=== PATIENT | female | born 1965 | race American Indian/Alaskan Native ===

== ENCOUNTER 2016-11-10 14:23 | Emergency (ER) | payer BC, OTHER ==
[2016-11-10] MEDS ORDERED: NORMODYNE IV ONE ×2 (15:32→16:43)
--- NOTE | 2016-11-10 15:40 | Cat Scan Report ---
FINAL REPORT EXAM: CT HEAD/BRAIN WO CON HISTORY: neuro deficits \T\lt; 6hrs or sx present upon awakening . Vomiting. Hypertension. TECHNIQUE: Standard unenhanced CT of the head at 5.0 millimeter axial increments. PRIORS: CT head 12/09/2015 FINDINGS: There is a new irregular area of low-density in the left basal ganglia extending into the temporal lobe inferiorly and the periventricular white matter superiorly, suggesting edema. Within this area of low-density, there is a smaller area of rounded hyperdensity suggesting hemorrhage. Findings are suspicious for an acute hypertensive hemorrhage in the left basal ganglia with surrounding edema. A diagnostic 2nd possibility is an early hemorrhagic infarct of the left basal ganglia. The 3rd possibility is an underlying mass lesion with hemorrhage and surrounding edema, however, no evidence for mass was seen on the prior exam in this region, making this possibility much less likely. There is mild mass effect on the left lateral ventricle and the left sylvian fissure. The ventricular system is otherwise normal in size and configuration. There is no evidence for parenchymal volume loss. No evidence for acute skull fracture is seen. Visualized paranasal sinuses are clear. No abnormality in the overlying scalp soft tissues is seen. IMPRESSION: Focal area of hemorrhage within the left basal ganglia with surrounding edema causing mass effect on the left lateral ventricle and left sylvian fissure. Most likely diagnostic etiology is a hypertensive hemorrhage of the left basal ganglia. A less likely possibility is hemorrhagic infarct of the left basal ganglia.
[2016-11-10 15:47] LABS: Basophils % (Auto) 0.4 % (0.0-1.8); Eosinophils % (Auto) 0.7 % (0.0-4.3); Hematocrit 38.4 % (30.3-42.9); Hemoglobin 12.4 gm/dl (10.1-14.3); Mean Corpuscular HGB Conc 32 % (30-34); Mean Corpuscular Hemoglobin 26 pg (28-32); Mean Corpuscular Volume 81 fl (79-97); Platelet Count 209 K/mm3 (140-440); Red Blood Count 4.75 M/mm3 (3.65-5.03); Red Cell Distribution Width 14.5 % (13.2-15.2); White Blood Count 8.5 K/mm3 (4.5-11.0)
[2016-11-10 15:50] LABS: INR 0.93 (0.87-1.13)
[2016-11-10] MEDS ORDERED: CARDENE DRIP 40 MG/200 ML 40 MG/200 ML BAG ONE (15:50)
[2016-11-10 15:51] LABS: Partial Thromboplastin Time 25.5 Sec. (24.2-36.6)
[2016-11-10] MEDS ORDERED: CARDENE DRIP 40 MG/200 ML 40 MG/200 ML BAG IV SCH (16:00)
[2016-11-10 16:04] LABS: Anion Gap 19 mmol/L; Blood Urea Nitrogen 15 mg/dL (7-17); Calcium 9.3 mg/dL (8.4-10.2); Carbon Dioxide 25 mmol/L (22-30); Chloride 100.3 mmol/L (98-107); Glucose 89 mg/dL (65-100); Potassium 3.4 mmol/L (3.6-5.0); Sodium 141 mmol/L (137-145)
--- NOTE | 2016-11-10 16:15 | XRay Report ---
FINAL REPORT EXAM: XR CHEST 1V AP HISTORY: neuro deficit. Hypertension TECHNIQUE: AP portable view of the chest PRIORS: CXR 12/09/2015 FINDINGS: Lines, tubes, and devices: N/A Lungs and pleura: Trachea is normal in position. Lungs are clear of infiltrate, pleural effusion, vascular congestion, or pneumothorax. No change. Cardiomediastinal silhouette: Cardiac and mediastinal silhouettes are unremarkable. Other: Bony structures are stable with degenerative changes around both AC joints again noted. IMPRESSION: No acute cardiopulmonary process seen. No change.
--- NOTE | 2016-11-10 17:55 | Emergency Department Report ---
ED Neuro Deficit HPI - General Chief Complaint: Neuro Symptoms/Deficit Stated Complaint: N/V Time Seen by Provider: 11/10/16 15:14 Source: family, EMS Mode of arrival: Stretcher Limitations: No Limitations - History of Present Illness Initial Comments: The patient is accompanied by her daughter who provides the following history. She states that the patient was in her usual state of health at 3 PM when she was last seen well. At her about 3:30 she (the patient's daughter) heard a noise. She came upstairs and discovered the patient on the floor. The patient did not complain of anything specific. Daughter did not note any neurological changes. According to the daughter the reason for presentation was because of acute weakness causing the patient to slide out of a chair. The daughter states that the patient did not suffer a loss of consciousness. She found the patient awake and amply responsive when she responded as above. There was no complaint of headache at any time this day. 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 There was no abnormality seen in the left basal ganglion. The patient is an insulin-dependent diabetic. According to the daughter she is compliant with her blood pressure medicine. -: Sudden Location: speech (the patient was noted to have some slurred speech) History of same: No Place: home Severity: severe Quality: other Improves With: none Worsens With: none On Anticoagulants: No Context: sudden onset (likely) Associated Symptoms: other (unable to provide hx) Treatments Prior to Arrival: none - Related Data Home Medications: Previous Rx's Medication Instructions Recorded Last Taken Type Insulin NPH/Regular [NovoLIN 70/30] 25 unit SUB-Q BIDDIAB #1 units 12/10/15 Rx Labetalol [Normodyne TAB] 200 mg PO BID #60 tablet 12/10/15 12/20/15 Rx Labetalol [Normodyne TAB] 200 mg PO QID #120 tablet 12/10/15 12/20/15 Rx Lisinopril [Zestril TAB] 2.5 mg PO QDAY #30 tab 12/10/15 12/20/15 Rx amLODIPine [Norvasc] 10 mg PO QDAY #30 tablet 12/10/15 12/20/15 Rx Nitrofurantoin [place]/M-Cryst 100 mg PO Q12HR #14 capsule 12/21/15 Unknown Rx [Macrobid CAP] Allergies/Adverse Reactions: Allergies Allergy/AdvReac Type Severity Reaction Status Date / Time No Known Allergies Allergy Verified 12/08/15 22:13 ED Review of Systems ROS: Stated complaint: N/V Other details as noted in HPI Comment: Unobtainable due to pts medical conditions ED Past Medical Hx - Past Medical History Hx Hypertension: Yes Hx Congestive Heart Failure: No Hx Diabetes: Yes Hx Asthma: No - Surgical History Additional Surgical History: lower back - Social History Smoking Status: Never Smoker Substance Use Type: None - Medications Home Medications: Home Medications Medication Instructions Recorded Confirmed Last Taken Type Insulin NPH/Regular [NovoLIN 70/30] 25 unit SUB-Q BIDDIAB #1 units 12/10/1512/20/15 Rx Labetalol [Normodyne TAB] 200 mg PO BID #60 tablet 12/10/15 12/21/15 12/20/15 Rx Labetalol [Normodyne TAB] 200 mg PO QID #120 tablet 12/10/15 12/21/15 12/20/15 Rx Lisinopril [Zestril TAB] 2.5 mg PO QDAY #30 tab 12/10/15 12/21/15 12/20/15 Rx amLODIPine [Norvasc] 10 mg PO QDAY #30 tablet 12/10/15 12/21/15 12/20/15 Rx Nitrofurantoin [place]/M-Cryst 100 mg PO Q12HR #14 capsule 12/21/15 Unknown Rx [Macrobid CAP] ED Neuro Physical Exam - General Limitations: No Limitations General appearance: alert, in no apparent distress Suspected Stroke: Yes - Head Head exam: Present: atraumatic, normocephalic - Eye Eye exam: Present: normal appearance - ENT ENT exam: Present: normal exam, mucous membranes moist - Neck Neck exam: Present: normal inspection - Respiratory Respiratory exam: Present: normal lung sounds bilaterally. Absent: respiratory distress - Cardiovascular Cardiovascular Exam: Present: regular rate, normal rhythm. Absent: systolic murmur, diastolic murmur, rubs, gallop - GI/Abdominal GI/Abdominal exam: Present: soft, normal bowel sounds. Absent: distended, tenderness, guarding, rebound, rigid - Extremities Exam Extremities exam: Present: normal inspection - Back Exam Back exam: Present: normal inspection - Neurological Exam Neurological exam: Present: alert, oriented X3, motor sensory deficit. Absent: CN II-XII intact - NIHSS Assessment Interval: Baseline 1a. Level of Consciousness: alert 1b. LOC Questions: answers 1 question correctly 1c. LOC Commands: performs tasks correctly 2. Best Gaze: normal 3. Visual: no visual loss 4. Facial Palsy: minor paralysis 5b. Motor Arm Right: some gravity effort 5a. Motor Arm Left: no drift 6a. Motor Leg Left: no drift 6b. Motor Leg Right: no gravity effort 7. Limb Ataxia: absent 8. Sensory: normal 9. Best Language: no aphasia 10. Dysarthria: mild/moderate dysarthria 11. Extinction/Inattention: no abnormality Total Score: 8 Stroke Severity: Moderate Stroke - Psychiatric Psychiatric exam: Present: normal mood, flat affect - Skin Skin exam: Present: warm, dry, intact, normal color. Absent: rash ED Course Vital Signs 11/10/16 11/10/16 11/10/16 14:29 15:04 15:11 Temperature 97.9 F Pulse Rate 64 68 65 Respiratory 18 15 21 Rate Blood Pressure 236/111 212/101 O2 Sat by Pulse 98 98 100 Oximetry 11/10/16 11/10/16 11/10/16 15:23 15:30 15:35 Temperature Pulse Rate 76 70 71 Respiratory 14 24 Rate Blood Pressure 212/101 208/95 212/101 O2 Sat by Pulse 99 98 Oximetry 11/10/16 11/10/16 11/10/16 15:40 15:50 16:00 Temperature Pulse Rate 66 69 73 Respiratory 17 20 18 Rate Blood Pressure 223/107 215/105 209/102 O2 Sat by Pulse 99 100 100 Oximetry 11/10/16 11/10/16 11/10/16 16:02 16:11 16:20 Temperature Pulse Rate 85 87 Respiratory 13 18 Rate Blood Pressure 185/92 186/90 O2 Sat by Pulse 98 100 100 Oximetry 11/10/16 11/10/16 11/10/16 16:31 16:40 16:50 Temperature Pulse Rate 82 89 102 H Respiratory 13 17 13 Rate Blood Pressure 173/87 175/88 182/97 O2 Sat by Pulse 100 100 100 Oximetry 11/10/16 11/10/16 11/10/16 17:01 17:10 17:21 Temperature Pulse Rate 91 H 92 H 83 Respiratory 20 12 15 Rate Blood Pressure 170/97 191/90 149/73 O2 Sat by Pulse 100 100 100 Oximetry - Reevaluation(s) Reevaluation #1: The patient was suspected of having an intracranial hemorrhage which is indeed what she was found to have. A code stroke was called. Her CT demonstrated a hemorrhage in the left basal ganglion which clinically correlates with her picture. There is edema as well. A neoplasm could not be excluded however her prior CT of 2015 showed no basal ganglion abnormality. In any case there is hemorrhage and edema which seems to suggest something perhaps a little less recent than the current history. I consulted Dr. Xiang Mccurdy, neurologist at [facility]. He discussed the CT findings and the presentation. He felt the patient would be best served at a facility with a stroke unit/neurologist. I concur. She will need to have MR protocols to delineate her pathology. I did speak to the hospitalist Dr. Richards here who did agree that the patient should be transferred. The patient had a small dose of labetalol given initially. Her blood pressure did increase rather than decrease. A Cardene drip was ordered. Dr. Maza I discussed the target which we agreed would be 180 systolic. That was ordered. I did discuss the presentation findings and neurological consultation with , the director regulatory agency at [facility]. He accepted the patient. Next She was hemodynamically neurologically monitored. She was transferred in stabilized condition. 11/10/16 18:02 - Lab Data Result diagrams: 11/10/16 15:12 11/10/16 15:12 Lab Results 11/10/16 11/10/16 11/10/16 Range/Units 15:12 15:12 15:12 WBC 8.5 (4.5-11.0) K/mm3 RBC 4.75 (3.65-5.03) M/mm3 Hgb 12.4 (10.1-14.3) gm/dl Hct 38.4 (30.3-42.9) % MCV 81 (79-97) fl MCH 26 L (28-32) pg MCHC 32 (30-34) % RDW 14.5 (13.2-15.2) % Plt Count 209 (140-440) K/mm3 Lymph % (Auto) 29.8 (13.4-35.0) % [place] % (Auto) 7.6 H (0.0-7.3) % Eos % (Auto) 0.7 (0.0-4.3) % Baso % (Auto) 0.4 (0.0-1.8) % Lymph # 2.5 (1.2-5.4) K/mm3 [place] # 0.6 (0.0-0.8) K/mm3 Eos # 0.1 (0.0-0.4) K/mm3 Baso # 0.0 (0.0-0.1) K/mm3 Seg Neutrophils % 61.5 (40.0-70.0) % Seg Neutrophils # 5.2 (1.8-7.7) K/mm3 PT 12.4 (12.2-14.9) Sec. INR 0.93 (0.87-1.13) APTT 25.5 (24.2-36.6) Sec. Thrombin Time (15.1-19.6) Sec. Sodium 141 (137-145) mmol/L Potassium 3.4 L (3.6-5.0) mmol/L Chloride 100.3 (98-107) mmol/L Carbon Dioxide 25 (22-30) mmol/L Anion Gap 19 mmol/L BUN 15 (7-17) mg/dL Creatinine 0.5 L (0.7-1.2) mg/dL Estimated GFR > 60 ml/min BUN/Creatinine Ratio 30.00 % Glucose 89 (65-100) mg/dL Calcium 9.3 (8.4-10.2) mg/dL Troponin T < 0.010 (0.00-0.029) ng/mL 11/10/16 Range/Units 15:12 WBC (4.5-11.0) K/mm3 RBC (3.65-5.03) M/mm3 Hgb (10.1-14.3) gm/dl Hct (30.3-42.9) % MCV (79-97) fl MCH (28-32) pg MCHC (30-34) % RDW (13.2-15.2) % Plt Count (140-440) K/mm3 Lymph % (Auto) (13.4-35.0) % [place] % (Auto) (0.0-7.3) % Eos % (Auto) (0.0-4.3) % Baso % (Auto) (0.0-1.8) % Lymph # (1.2-5.4) K/mm3 [place] # (0.0-0.8) K/mm3 Eos # (0.0-0.4) K/mm3 Baso # (0.0-0.1) K/mm3 Seg Neutrophils % (40.0-70.0) % Seg Neutrophils # (1.8-7.7) K/mm3 PT (12.2-14.9) Sec. INR (0.87-1.13) APTT (24.2-36.6) Sec. Thrombin Time 15.0 L (15.1-19.6) Sec. Sodium (137-145) mmol/L Potassium (3.6-5.0) mmol/L Chloride (98-107) mmol/L Carbon Dioxide (22-30) mmol/L Anion Gap mmol/L BUN (7-17) mg/dL Creatinine (0.7-1.2) mg/dL Estimated GFR ml/min BUN/Creatinine Ratio % Glucose (65-100) mg/dL Calcium (8.4-10.2) mg/dL Troponin T (0.00-0.029) ng/mL - EKG Data -: EKG Interpreted by Me EKG shows normal: sinus rhythm Rate: normal Interpretation: LVH, other (left axis deviation with likely associated repolarization abnormalities left atrial enlargement and left axis deviation) - Radiology Data interpreted by va: Chest x-ray no acute process Critical Care Time: Yes Critical care time in (mins) excluding proc time.: 90 Critical care attestation.: If time is entered above; I have spent that time in minutes in the direct care of this critically ill patient, excluding procedure time. ED Disposition Clinical Impression: Basal ganglia hemorrhage, Hypertensive crisis Disposition: DC/TX ANOTHER TYPE HEALTHCARE Is pt being admited?: No Does the pt Need Aspirin: No Condition: Stable Time of Disposition: 18:10
[2016-11-10 18:11] VITALS: BP 193/95
== END 2016-11-10 18:15 | disposition other institution (70) ==
LOC: ED 14:23
DX: I61.0 Nontraumatic intracerebral hemorrhage in hemisphere, subcortical (principal); I10 Essential (primary) hypertension
CPT/HCPCS: 36415; 70450; 71010; 80048; 84484; 85025; 85610; 85670; 85730; 93005; 93010; 96374; 99292